=== PATIENT | female | born 1980 | race African-American/Black ===

== ENCOUNTER 2017-04-03 08:25 | Emergency (ER) | payer OTHER ==
[~2017-04-03] VITALS: Ht 152.4 cm; Wt 86.2 kg
--- NOTE | 2017-04-03 08:28 | PHYS DOC ---
Adult General Chief Complaint Chief Complaint: ABDOMINAL PAIN HPI HPI Patient is a 36 year old female presenting to the emergency department for evaluation of abdominal pain dizziness headache. She says that 2 and 3 days ago she was having nausea vomiting and diarrhea and that has since stopped but the nausea has persisted and she has not been eating or drinking anything by mouth for the past 2 days. She says that she now feels dizzy and that she has persistent abdominal pain primarily in the left lower quadrant. She says that it is a sharp stabbing pain. No bloody emesis or stools. She says that the dizziness as a lightheaded sensation and headache is dull and achy mostly occipital but comes and goes. She is in no obvious distress with normal vital signs except for her hypertension for which she has a diagnosis. Review of Systems Review of Systems Constitutional: Denies fever or chills [] Eyes: Denies change in visual acuity, redness, or eye pain [] HENT: Denies nasal congestion or sore throat [] Respiratory: Denies cough or shortness of breath [] Cardiovascular: No additional information not addressed in HPI [] GI: + abdominal pain, nausea, vomiting, diarrhea [] : Denies dysuria or hematuria [] Musculoskeletal: Denies back pain or joint pain [] Integument: Denies rash or skin lesions [] Neurologic: + headache. No focal weakness. + dizziness sensory changes [] Current Medications Current Medications Current Medications Medications (Trade) Dose Ordered Sig/[facility] Start Time Stop Time Status Last Admin Dose Admin Diphenhydramine HCl (Benadryl) 50 mg 1X ONCE 04/03/17 09:15 04/03/17 09:16 DC 04/03/17 10:06 50 MG Hydrochlorothiazide (Hydrodiuril) 25 mg ONCE STAT 04/03/17 10:15 04/03/17 10:18 DC 04/03/17 10:29 25 MG Info (Do NOT chart on this entry -- for MONITORING) 1 each PRN DAILY PRN 04/03/17 09:15 04/05/17 09:14 Iohexol (Omnipaque 300 Mg/ml) 75 ml 1X ONCE 04/03/17 09:15 04/03/17 09:16 DC 04/03/17 09:37 75 ML Ketorolac Tromethamine (Toradol) 30 mg 1X ONCE 04/03/17 10:30 04/03/17 10:31 DC 04/03/17 10:31 30 MG Morphine Sulfate 5 mg 1X ONCE 04/03/17 09:00 04/03/17 09:01 DC 04/03/17 10:06 5 MG Ondansetron HCl (Zofran) 8 mg 1X ONCE 04/03/17 09:00 04/03/17 09:01 DC 04/03/17 08:58 8 MG Promethazine HCl 12.5 mg/Sodium Chloride 50.5 ml @ 151.5 mls/ hr 1X STAT 04/03/17 10:15 04/03/17 10:34 DC 04/03/17 10:29 151.5 MLS/HR Sodium Chloride 1,000 ml @ 1,000 mls/hr 1X ONCE 04/03/17 09:00 04/03/17 09:59 DC 04/03/17 08:59 1,000 MLS/HR Allergies Allergies Allergies Coded Allergies Type Severity Reaction Last Updated Verified Fish Containing Products Allergy Unknown 04/03/17 Yes methimazole Allergy Unknown 04/03/17 Yes propylthiouracil Allergy Unknown 04/03/17 Yes strawberry Allergy Unknown 04/03/17 Yes Physical Exam Physical Exam Constitutional: Well developed, well nourished, no acute distress, non-toxic appearance. [] HENT: Normocephalic, atraumatic, bilateral external ears normal, oropharynx moist, no oral exudates, nose normal. [] Eyes: PERRLA, EOMI, conjunctiva normal, no discharge. [] Neck: Normal range of motion, no tenderness, supple, no stridor. [] Cardiovascular:Heart rate regular rhythm, no murmur [] Lungs & Thorax: Bilateral breath sounds clear to auscultation [] Abdomen: Bowel sounds normal, soft, +LLQ tenderness, no masses, no pulsatile masses. [] Skin: Warm, dry, no erythema, no rash. [] Back: No tenderness, no CVA tenderness. [] Extremities: No tenderness, no cyanosis, no clubbing, ROM intact, no edema. [] Neurologic: Alert and oriented X 3, normal motor function, normal sensory function, no focal deficits noted. [] Current Patient Data Vital Signs Vital Signs Date Time Temp Pulse Resp B/P (MAP) Pulse Ox O2 Delivery O2 Flow Rate FiO2 04/03/17 10:06 18 04/03/17 08:27 98.9 81 191/109 (136) 97 Room Air 98.9 Lab Values Laboratory Tests Test 04/03/17 08:29 04/03/17 08:45 04/03/17 09:05 Urine Collection Type Unknown Urine Color Yellow Urine Clarity Clear Urine pH 7.5 Urine Specific [place] 1.025 Urine Protein Negative mg/dL (NEG-TRACE) Urine Glucose (UA) Negative mg/dL (NEG) Urine Ketones (Stick) Negative mg/dL (NEG) Urine Blood Small (NEG) Urine Nitrite Negative (NEG) Urine Bilirubin Negative (NEG) Urine Urobilinogen Dipstick 0.2 mg/dL (0.2 mg/dL) Urine Leukocyte Esterase Negative (NEG) Urine RBC 1-2 /HPF (0-2) Urine WBC Occ /HPF (0-4) Urine Squamous Epithelial Cells Few /LPF Urine Bacteria Few /HPF (0-FEW) Urine Mucus Slight /LPF Maternal Serum HCG Beta Subunit 1 mIU/mL (0-6) Sodium Level 142 mmol/L (136-145) Potassium Level 3.7 mmol/L (3.5-5.1) Chloride Level 106 mmol/L (98-107) Carbon Dioxide Level 28 mmol/L (21-32) Anion Gap 8 (6-14) Blood Urea Nitrogen 7 mg/dL (7-20) Creatinine 0.7 mg/dL (0.6-1.0) Estimated GFR (Cockcroft-Gault) 113.9 BUN/Creatinine Ratio 10 (6-20) Glucose Level 85 mg/dL (70-99) Calcium Level 8.7 mg/dL (8.5-10.1) Magnesium Level 1.9 mg/dL (1.8-2.4) Total Bilirubin 0.3 mg/dL (0.2-1.0) Aspartate Amino Transferase (AST) 25 U/L (15-37) Alanine Aminotransferase (ALT) 40 U/L (14-59) Alkaline Phosphatase 88 U/L (46-116) Creatine Kinase 75 U/L (26-192) Total Protein 7.5 g/dL (6.4-8.2) Albumin 3.6 g/dL (3.4-5.0) Albumin/Globulin Ratio 0.9 (1.0-1.7) L Lipase 104 U/L (73-393) White Blood Count 5.2 x10^3/uL (4.0-11.0) Red Blood Count 4.66 x10^6/uL (3.50-5.40) Hemoglobin 14.5 g/dL (12.0-15.5) Hematocrit 41.4 % (36.0-47.0) Mean Corpuscular Volume 89 fL (79-100) Mean Corpuscular Hemoglobin 31 pg (25-35) Mean Corpuscular Hemoglobin Concent 35 g/dL (31-37) Red Cell Distribution Width 14.3 % (11.5-14.5) Platelet Count 166 x10^3/uL (140-400) Neutrophils (%) (Auto) 55 % (31-73) Lymphocytes (%) (Auto) 28 % (24-48) Monocytes (%) (Auto) 15 % (0-9) H Eosinophils (%) (Auto) 2 % (0-3) Basophils (%) (Auto) 1 % (0-3) Neutrophils # (Auto) 2.9 x10^3uL (1.8-7.7) Lymphocytes # (Auto) 1.4 x10^3/uL (1.0-4.8) Monocytes # (Auto) 0.8 x10^3/uL (0.0-1.1) Eosinophils # (Auto) 0.1 x10^3/uL (0.0-0.7) Basophils # (Auto) 0.0 x10^3/uL (0.0-0.2) Laboratory Tests 04/03/17 09:05 Laboratory Tests 04/03/17 08:45 EKG EKG [] Radiology/Procedures Radiology/Procedures Indication: Left lower quadrant pain with nausea and vomiting. Technique: Axial images and coronal and sagittal reformatted images are provided. 75 mL of intravenous Omnipaque 300 was administered without complication. No comparison is available. One or more of the following individualized dose reduction techniques were utilized for this examination: 1. Automated exposure control 2. Adjustment of the mA and/or kV according to patient size 3. Use of iterative reconstruction technique Findings: There is atelectasis in the lung bases. There is no pleural effusion. The heart is not enlarged. Liver is unremarkable. Gallbladder is partially contracted. Benign calcifications are noted in the spleen. The pancreas and the adrenals are unremarkable. The kidneys are symmetrically perfused. Aorta is normal caliber. There is minimal atheromatous disease in the distal abdominal aorta. Lack of oral contrast limits evaluation of bowel. There is no bowel obstruction or mural thickening. Colon is grossly unremarkable. Appendix is not visualized, there are no secondary findings of an appendicitis. The uterus and the adnexa are unremarkable. There is no free pelvic fluid. Bladder is unremarkable. Bony structures appear intact. Impression: 1. No acute abdominal findings. DICTATED and SIGNED BY: RASHIDA CAREY MD DATE: 04/03/17 0959 Course & Med Decision Making Course & Med Decision Making Patient's labs and CT are quite unremarkable. She felt nausea after the CT scan. Given an additional Phenergan and she is able to tolerate water and her home blood pressure medication without any difficulty. Given patient appears well with normal vital signs benign repeat abdominal exam and is asking to go home will discharged with [place] Zofran and instructions to take it easy on her GI tract and come back to the ER sooner with any worsening pain fevers vomiting or other general concerns. Patient aware and agreeable with plan. Dragon Disclaimer Dragon Disclaimer This electronic medical record was generated, in whole or in part, using a voice recognition dictation system. Departure Departure Impression: Primary Impression: Abdominal pain Additional Impression: Nausea & vomiting Disposition: 01 HOME, SELF-CARE Condition: GOOD Referrals: RITA SOTELO MD (PCP) Patient Instructions: Abdominal Pain (Nonspecific) Additional Instructions: Drink plenty of fluids including water and Gatorade. EKG soft nonirritating diet such as Jell-O, soups. Follow with your primary care provider in 2 days and come back to the ER sooner with worsening pain fevers vomiting or other general concerns. Scripts Ondansetron (ZOFRAN ODT) 4 Mg Tab.rapdis 4 MG PO BID Y for NAUSEA/VOMITING, #10 TAB Prov: POOJA WICK DO 04/03/17 Hydrocodone/Apap 5-325 (NORCO 5-325 TABLET) 1 Each Tablet 1 TAB PO PRN Q6HRS Y for PAIN, #20 TAB 0 Refills Prov: POOJA WICK DO 04/03/17 Problem Qualifiers Primary Impression: Abdominal pain Abdominal location: generalized Qualified Codes: R10.84 - Generalized abdominal pain POOJA WICK DO April 03, 2017 08:28
[2017-04-03] MEDS ORDERED: IV NORMAL SALINE 1000ML BAG 1,000 ML IV ONE (09:00)
[2017-04-03] MEDS: MORPHINE SULFATE 10 MG/ML VIAL. IV ONE ×2 (09:00→10:06)
[2017-04-03] MEDS ORDERED: ONDANSETRON PF 4 MG/2 ML VIAL. IV ONE (09:00)
[2017-04-03 09:08] LABS: CALCIUM 8.7 mg/dL (8.5-10.1); CREATININE 0.7 mg/dL (0.6-1.0); GFR 113.9; POTASSIUM 3.7 mmol/L (3.5-5.1)
[2017-04-03 09:09] LABS: BASO % 1 % (0-3); EOS % 2 % (0-3); HEMATOCRIT 41.4 % (36.0-47.0); HEMOGLOBIN 14.5 g/dL (12.0-15.5); LYMPH # 1.4 x10^3/uL (1.0-4.8); LYMPH % 28 % (24-48); MEAN CORPUSCULAR HEMOGLOBIN 31 pg (25-35); MEAN CORPUSCULAR HGB CONC 35 g/dL (31-37); MEAN CORPUSCULAR VOLUME 89 fL (79-100); MONO % 15 % (0-9); NEUT % 55 % (31-73); PLATELET COUNT 166 x10^3/uL (140-400); RED BLOOD COUNT 4.66 x10^6/uL (3.50-5.40); RED CELL DISTRIBUTION WIDTH 14.3 % (11.5-14.5); WHITE BLOOD COUNT 5.2 x10^3/uL (4.0-11.0)
[2017-04-03] MEDS: diphenhydrAMINE 50 MG/ML VIAL IVP ONE ×2 (09:10→10:06)
[2017-04-03 09:14] LABS: ALBUMIN 3.6 g/dL (3.4-5.0); ALBUMIN/GLOBULIN RATIO 0.9 (1.0-1.7); MAGNESIUM 1.9 mg/dL (1.8-2.4); TOTAL BILIRUBIN 0.3 mg/dL (0.2-1.0); TOTAL PROTEIN 7.5 g/dL (6.4-8.2)
[2017-04-03] MEDS ORDERED: CONTRAST GIVEN MC PRN (09:15)
[2017-04-03] MEDS ORDERED: IOHEXOL 300 MG/ML 75 ML VIAL IV ONE (09:15)
--- NOTE | 2017-04-03 10:07 | RAD ---
Indication: Left lower quadrant pain with nausea and vomiting. Technique: Axial images and coronal and sagittal reformatted images are provided. 75 mL of intravenous Omnipaque 300 was administered without complication. No comparison is available. One or more of the following individualized dose reduction techniques were utilized for this examination: 1. Automated exposure control 2. Adjustment of the mA and/or kV according to patient size 3. Use of iterative reconstruction technique Findings: There is atelectasis in the lung bases. There is no pleural effusion. The heart is not enlarged. Liver is unremarkable. Gallbladder is partially contracted. Benign calcifications are noted in the spleen. The pancreas and the adrenals are unremarkable. The kidneys are symmetrically perfused. Aorta is normal caliber. There is minimal atheromatous disease in the distal abdominal aorta. Lack of oral contrast limits evaluation of bowel. There is no bowel obstruction or mural thickening. Colon is grossly unremarkable. Appendix is not visualized, there are no secondary findings of an appendicitis. The uterus and the adnexa are unremarkable. There is no free pelvic fluid. Bladder is unremarkable. Bony structures appear intact. Impression: 1. No acute abdominal findings.
[2017-04-03] MEDS ORDERED: PROMETHAZINE 12.5 MG in IV NORMAL SALINE 50ML 50 ML IV STA (10:15)
[2017-04-03] MEDS ORDERED: hydroCHLOROthiazide 25 MG TABLET PO STA (10:15)
[2017-04-03 10:24] LABS: BILIRUBIN,URINE NEGATIVE (NEG); GLUCOSE,URINE NEGATIVE (NEG); NITRITE,URINE NEGATIVE (NEG); PH,URINE 7.5; PROTEIN,URINE NEGATIVE (NEG-TRACE); UROBILINOGEN,URINE 0.2 mg/dL (0.2 mg/dL)
[2017-04-03] MEDS ORDERED: KETOROLAC TROMETHAMINE 30 MG/ML INJ. IV ONE (10:30)
[2017-04-03 10:40] LABS: BACTERIA,URINE FEW /HPF (0-FEW); SQUAMOUS EPITHELIAL CELL,UR FEW /LPF; WBC,URINE OCC /HPF (0-4)
[2017-04-03 11:00] VITALS: BP 162/94
[2017-04-03] MEDS ORDERED: ONDA4TAB10 PO (11:11)
[2017-04-03] MEDS ORDERED: HYDR-971 PO (11:11)
== END 2017-04-03 11:21 | disposition home or self-care (01) ==
LOC: ER 09:50
DX: R10.32 Left lower quadrant pain (principal); R11.2 Nausea with vomiting, unspecified; R19.7 Diarrhea, unspecified; R51 Headache; R42 Dizziness and giddiness; I10 Essential (primary) hypertension; Z91.013 Allergy to seafood; Z88.8 Allergy status to other drugs, medicaments and biological substances; Z91.018 Allergy to other foods
CPT/HCPCS: 36415; 74177; 80053; 81001; 82550; 83690; 83735; 84702; 85027; 96361; 96365; 96375; 99285; J1200; J1885; J2270; J2405; J2550; J7030; Q9967

== ENCOUNTER 2017-12-21 09:10 | Emergency (ER) | payer OTHER ==
[2017-12-21 10:38] LABS: INFLUENZA A PATIENT NEGATIVE (NEGATIVE); INFLUENZA B PATIENT NEGATIVE (NEGATIVE); OBC FLU VALID
== END 2017-12-21 11:05 | disposition home or self-care (01) ==
LOC: ER 09:10
DX: J20.9 Acute bronchitis, unspecified (principal); I10 Essential (primary) hypertension; Z91.013 Allergy to seafood; Z88.1 Allergy status to other antibiotic agents; Z88.8 Allergy status to other drugs, medicaments and biological substances; Z91.018 Allergy to other foods
CPT/HCPCS: 87804; 87804-59; 99284

== ENCOUNTER → 2018-03-24 | Outpatient (CLI) | payer OTHER | END | disposition home or self-care (01) | LOC: KCIC MAMMO 12:54 | DX: N64.89 Other specified disorders of breast (principal); I10 Essential (primary) hypertension | CPT/HCPCS: 76641; 77066 ==